=== PATIENT | female | born 1970 | race Caucasian/White ===

== ENCOUNTER 2020-12-26 14:02 | Emergency (ER) | payer BC, SELFPAY ==
[2020-12-26 14:15] VITALS: BP 128/82; PULSE 89; RESP 21; TEMP 37; O2SAT 100; BMI 36.3
--- NOTE | 2020-12-26 15:00 | HMH.EDUTC ---
[facility] Disposition Clinical Impression: Nausea Diarrhea Qualifiers: Diarrhea type: unspecified type Qualified Code(s): R19.7 - Diarrhea, unspecified Disposition: Home, Self-Care Condition on Discharge: Good Instructions: Diarrhea, DI for Nausea -- Adult, Ondansetron, Dicyclomine Additional Instructions: Drink extra fluids with and between meals. If you have difficulty drinking, try very small amounts of water or suck on ice chips. ? Avoid fruit juices, as these do not replace minerals and can actually increase diarrhea. ? Children and adults can use sports drinks to replenish electrolytes. Younger children and infants should use products formulated for children, like oral rehydration solutions. ? Eat food in small amounts and let your stomach recover. ? Get lots of rest. You may feel tired or weak. ? No greasy or fried foods for the next 24-48 hours BRAT diet Bananas Rice Apples and [place] ? Make sure to drink plenty of liquids ? Return if needed ? Straight to ER if any life threatening symptoms ? Zofran as prescribed ? You was given an outpatient order for diarrhea panel, please collect specimen and bring back to outpatient lab then call back to the [facility] or follow up with family doctor for results ? Follow up with family doctor in the next 48-72 hours if no improvement or any worsening of symptoms Prescriptions: Dicyclomine HCl [Bentyl 10mg capsule] 10 mg PO TID PRN #15 cap PRN Reason: Cramping Transmission Status: Pending to [id number] Ondansetron [Zofran 4mg ODT] 4 mg PO TIDP PRN #9 tab PRN Reason: Nausea Transmission Status: Pending to [id number] Referrals: Anthony Mccann MD [Primary Care Provider] - As needed Time of Disposition: 15:17 Medical Decision Making - Malvin Inquiry Pt receiving controlled substance: No Malvin was queried for this patient: No Vital Signs: 12/26/20 14:15 Temperature 98.6 F Temperature Source Oral Pulse Rate [Right Brachial] 89 Respiratory Rate 21 Blood Pressure [Right Arm] 128/82 Blood Pressure Mean [Right Arm] 97 Blood Pressure Source [Right Arm] Automatic Cuff Blood Pressure Position [Right Arm] Sitting 02 Sat by Pulse Oximetry 100 Oxygen Delivery Method Room Air - Lab Data Lab results reviewed: Yes: I reviewed the patient's lab results. Lab Results 12/26/20 15:00: Urine Color Dark yellow, Urine Appearance Clear, Urine pH 6.0, Ur Specific Welch 1.030, Urine Protein 1+, Urine Glucose (UA) Negative, Urine Ketones Negative, Urine Blood Trace, Urine Nitrate Negative, Urine Bilirubin 1+ A, Urine Urobilinogen 0.2, Ur Leukocyte Esterase Negative [facility] HPI - General Stated complaint: diarrhea,nausea, chills Time Seen by Provider: 12/26/20 15:00 Mode of Arrival: Ambulatory Source of Information: Patient Limitations: No Limitations Description of Symptoms (Recalled from Triage Doc. by RN): PATIENT C/O DIARRHEA AND NAUSEA SINCE WEDNESDAY EVENING HEENT Symptoms (Recalled from RN notes): No Resp Symptoms (Recalled from RN notes): No Skin Symptoms (Recalled from RN notes): No MS Symptoms (Recalled from RN notes): No Functional Status (Recalled from RN notes): WNL - History of Present Illness Provider Complaint: Patient states that she started having diarrhea and Nausea on Wednesday but no vomiting States that she has had some cramping and diarrhea has been on and off States that also wants to get checked for UTI states that she noticed earlier that she has a little burning with urination and afraid with the diarrhea she has got a UTI - Related Data Home Medications Medication Instructions Recorded Confirmed citalopram 20 mg tablet 20 mg PO DAILY 10/12/19 12/26/20 omeprazole 20 mg capsule,delayed 20 mg PO DAILY 10/12/19 12/26/20 release Previous Rx's Medication Instructions Recorded Dicyclomine HCl [Bentyl 10mg 10 mg PO TID PRN #15 cap 12/26/20 capsule] Ondansetron [Zofran 4mg ODT] 4 mg PO TIDP PRN #9 tab 12/26/20 A
[2020-12-26 15:09] LABS: Apearance,Urine Clear (Clear); Color,Urine Dark Yellow (Yellow); Glucose,Urine (UA) Negative (Negative); Protein,Urine 1+ (Negative)
[2020-12-26 15:10] LABS: Bilirubin,Urine 1+ (Negative); Blood, Urine Trace (Negative); Ketones,Urine Negative (Negative); UTC Leukocyte Esterase,Urine Negative (Negative); UTC Nitrate,Urine Negative (Negative); Urobilinogen,Urine 0.2 EU/dl (0.2)
[2020-12-26 15:14] VITALS: BP 128/82; PULSE 89; RESP 21; TEMP 37; O2SAT 100
== END 2020-12-26 15:20 | disposition home or self-care (01) ==
PROVIDERS: Emergency Provider Nurse Practitioner; PCP Family Medicine
DX: R11.0 Nausea (principal); R19.7 Diarrhea, unspecified; K21.9 Gastro-esophageal reflux disease without esophagitis; F41.9 Anxiety disorder, unspecified
CPT/HCPCS: 81003; 99202; G0463

== ENCOUNTER 2022-08-28 18:55 | Emergency (ER) | payer BC, SELFPAY ==
[2022-08-28] VITALS (8 sets, daily range): BP systolic 131–216; BP diastolic 78–143; PULSE 79–105; RESP 14–19; TEMP 36.8; O2SAT 95–98; BMI 37.2
--- NOTE | 2022-08-28 19:08 | ECG_ITS ---
APPROVED REPORT Exam: Resting ECG HR:97 bpm ECG Measurements Heart Rate 97 AXES [place] 167 P 67 QRSd 90 QRS 66 QT 342 T 64 QTc 397 Conclusion SINUS RHYTHM MINIMAL ST DEPRESSION [0.025+ mV ST DEPRESSION] BORDERLINE ECG UNCONFIRMED REPORT Electronically signed by : Roshan Urrutia MD 08/29/2022 16:21:32
--- NOTE | 2022-08-28 19:20 | HMH.EDGENADL ---
Discharge Plan Disposition Patient Disposition: Home, Self-Care Condition: Good Prescriptions Prescriptions: New cephalexin [cephalexin] 500 mg capsule 500 mg PO BID Qty: 14 0RF lisinopril 10 mg tablet 10 mg PO DAILY Qty: 10 0RF No Action citalopram [Celexa] 20 mg tablet 20 mg PO DAILY omeprazole 20 mg capsule,delayed release(DR/EC) 20 mg PO DAILY Clinical Impressions Clinical Impression: Hypertension, UTI (urinary tract infection), Hypertensive emergency Instructions Patient Instructions: Essential Hypertension Discharge ED Provider: Jony Tim General Adult HPI <Jony Tim MD - Last Filed: 08/28/22 19:43> General Chief complaint: Arrhythmia/Palpitations Stated complaint: Blood Pressure High HINOJOSA Time Seen by Provider: 08/28/22 19:20 Mode of Arrival: Ambulatory Source of Information: Patient Limitations: No Limitations Description of Symptoms (Recalled from ER Triage Doc. by RN): Patient reports feeling like her blood pressure was up since Wednesday. Patient denies history of HTN. Does not associate chest pain, shortness of air, fever, chills. History of Present Illness HPI narrative: Patient states my blood pressure has been creeping up . She says on Wednesday evening when she first noticed it her blood pressure was 140/110. It has been climbing since then. She does not have a diagnosis of hypertension. She does not have any known heart disease. She says she has had a slight headache. She says when she looks at spreadsheets at work she has some small spots of blurry vision intermittently, e.g. some of the numbers in a line of numbers will appear difficult to see. No other visual disturbance. She sometimes has a slight discomfort in her chest and dyspnea on exertion. Related Data Home Medications Medication Instructions Recorded Confirmed citalopram 20 mg tablet (Celexa) 20 mg PO DAILY Anxiety 10/12/19 08/28/22 omeprazole 20 mg capsule,delayed 20 mg PO DAILY GERD 10/12/19 08/28/22 release Previous Rx's Medication Instructions Recorded cephalexin 500 mg capsule 500 mg PO BID #14 caps 08/28/22 lisinopril 10 mg tablet 10 mg PO DAILY #10 tabs 08/28/22 Allergies Allergy/AdvReac Type Severity Reaction Status Date / Time any Allergy pancreatiti Verified 10/12/19 18:18 s <Chin Barrientos MD - Last Filed: 08/28/22 21:04> General Source of Information: Medical Record [facility] <Jony Tim MD - Last Filed: 08/28/22 19:43> [facility] Disclaimer: The information contained in this section may have been updated after the patient was seen, as this information can be updated by other users. Medical History (Updated 08/28/22 @ 21:04 by Chin Barrientos MD) Anxiety with depression delivery delivered GERD without esophagitis Hernia of abdominal cavity Seasonal allergies Social History Smoking Status: Never smoker alcohol intake: never substance use type: denies use current occupational status: other Travel in the last 8 weeks: None household members: family housing: house <Jony Tim MD - Last Filed: 08/28/22 19:43> ROS Obtained: Yes Systems reviewed as appropriate & no additional complaints except as documented Constitutional Constitutional: Denies fever(s), Reports headache(s) and Denies weakness Eyes Eyes: Reports as per HPI and Reports blurry vision ENT Ears, Nose, Mouth, and Throat: Reports headache(s), Denies nasal discharge and Denies sore throat Cardiovascular Cardiovascular: Reports chest pain and Reports dyspnea on exertion Respiratory Respiratory: Denies shortness of breath, Denies cough and Reports dyspnea on exertion Gastrointestinal Gastrointestingal: Denies abdominal pain, constipation, diarrhea or vomiting Genitourinary Female Genitourinary: Denies difficulty voiding, Denies dysuria and Denies flank pain Musculoskeletal Musculoskeletal: Denies numbness Neurologic Neurologic: Reports headache(s),
--- NOTE | 2022-08-28 19:22 | PC.NURSE ---
Dr. Tim at [facility] speaking with pt
--- NOTE | 2022-08-28 19:32 | XR_ITS ---
PROCEDURE INFORMATION: Exam: XR Chest Exam date and time: 08/28/2022 7:51 PM Age: 52 years old Clinical indication: Pain; Chest pressure; Additional info: High BP TECHNIQUE: Imaging protocol: Radiologic exam of the chest. Views: 1 view. COMPARISON: No relevant prior studies available. FINDINGS: Lungs: No consolidation. Pleural spaces: No pneumothorax. Heart/Mediastinum: No cardiomegaly. Bones/joints: No acute abnormality. IMPRESSION: No acute findings.
[2022-08-28 19:38] LABS: Microscopic, Urine URINE MICROSCOPIC (MICROSCOPIC)
[2022-08-28 19:40] LABS: Appearance,Urine CLEAR (Clear); Bilirubin,Urine Negative (Negative); Blood, Urine Negative (Negative); Color,Urine YELLOW (Yellow); Glucose,Urine (UA) Negative (Negative); Ketones,Urine TRACE (Negative); Leukocyte Esterase,Urine Negative (Negative); Nitrate,Urine POSITIVE (Negative); PH,Urine 5.5 (5.0-8.5); Protein,Urine Negative (Negative)
--- NOTE | 2022-08-28 19:40 | PC.NURSE ---
RAD at for CXR
[2022-08-28 19:49] LABS: Alanine Aminotransferase 66 U/L (12-78); Albumin Level 4.7 g/dl (3.5-5.0); Albumin/Globulin Ratio 1.3 (1.1-1.8); Alkaline Phosphatase 88 U/L (38-126); Anion Gap 12.5 mEq/L (5-15); Aspartate Amino Transferase 57 U/L (14-36); Bilirubin,Total 0.5 mg/dl (0.2-1.3); Blood Urea Nitrogen 16 mg/dl (7-17); Carbon Dioxide 25 mmol/L (22.0-30.0); Chloride 104 mmol/L (98-107); Creatinine Clearance Estimated 143 mL/min (50-200); Estimated Glomerular Filt Rate 88 ml/min (>60); GFR (African American) 107 ML/MIN (>60); Globulin 3.7 g/dL (1.3-3.2); Glucose 80 mg/dl (74-100); Potassium 3.5 mmoL/L (3.5-5.1); Sodium 138 mmol/L (136-145); Total Protein,Serum 8.4 g/dl (6.3-8.2)
[2022-08-28 19:58] LABS: NT Pro Brain Natriuretic Pep. 71.8 pg/mL (0-125)
[2022-08-28 20:08] LABS: Basophils # 0.1 K/mm3 (0-0.2); Basophils % 1.2 % (0.1-2.0); Eosinophils # 0.1 K/mm3 (0.0-0.4); Eosinophils % 1.5 % (0.1-12.0); Hematocrit 41.3 % (37.0-47.0); Hemoglobin 13.7 g/dL (12.2-16.2); Lymphocytes # 2.7 K/mm3 (0.7-4.5); Lymphocytes % 31.8 % (10-50); Mean Corpuscular HGB Conc 33.2 g/dL (31.8-35.4); Mean Corpuscular Hemoglobin 29.3 pg (27.0-31.2); Mean Corpuscular Volume 88.2 fl (81-99); Mean Platelet Volume 9.4 fl (7.4-10.4); Monocytes # 0.4 K/mm3 (0.1-1.0); Monocytes % 4.7 % (1.7-9.3); Neutrophils # 5.2 K/mm3 (1.8-7.8); Neutrophils % 60.9 % (37.0-80.0); Platelet Count 271 K/mm3 (142-424); Red Blood Count 4.69 M/mm3 (4.20-5.40); Red Cell Distribution Width 15.2 % (11.5-17.5); White Blood Count 8.6 K/mm3 (4.8-10.8)
[2022-08-28 20:11] LABS: Troponin I < 0.01 ng/ml (0.00-0.034)
[2022-08-28 20:15] LABS: Bacteria,Urine 3+ /lpf
--- NOTE | 2022-08-28 20:58 | PC.NURSE ---
Rechecked pt condition. No needs or complaints voiced at this time.
== END 2022-08-28 21:07 | disposition home or self-care (01) ==
PROVIDERS: Emergency Provider Emergency Medicine; PCP Family Medicine
DX: I16.1 Hypertensive emergency (principal); I10 Essential (primary) hypertension; N39.0 Urinary tract infection, site not specified; F41.9 Anxiety disorder, unspecified; K21.9 Gastro-esophageal reflux disease without esophagitis; J30.9 Allergic rhinitis, unspecified
CPT/HCPCS: 71045; 80053; 81001; 83880; 84484; 85025; 87086; 87088; 87186; 93005; 96374; 99285

== ENCOUNTER 2024-05-08 16:33 | Emergency (ER) | payer BC, SELFPAY ==
[2024-05-08] VITALS (7 sets, daily range): BP systolic 129–210; BP diastolic 91–119; PULSE 76–92; RESP 16–20; TEMP 36.5–36.8; O2SAT 94–100; BMI 29.5
[2024-05-08 17:09] LABS: Basophils # 0.1 K/mm3 (0-0.2); Basophils % 0.5 % (0.1-2.0); Eosinophils % 0.3 % (0.1-12.0); Hematocrit 43.6 % (37.0-47.0); Hemoglobin 13.7 g/dL (12.2-16.2); Lymphocytes # 1.8 K/mm3 (0.7-4.5); Lymphocytes % 17.3 % (10-50); Mean Corpuscular HGB Conc 31.4 g/dL (31.8-35.4); Mean Corpuscular Hemoglobin 30.4 pg (27.0-31.2); Mean Platelet Volume 10.3 fl (7.4-10.4); Monocytes # 0.4 K/mm3 (0.1-1.0); Monocytes % 3.5 % (1.7-9.3); Neutrophils # 8.2 K/mm3 (1.8-7.8); Neutrophils % 78.4 % (37.0-80.0); Platelet Count 268 K/mm3 (142-424); Red Blood Count 4.49 M/mm3 (4.20-5.40); Red Cell Distribution Width 13.9 % (11.5-17.5); White Blood Count 10.4 K/mm3 (4.8-10.8)
--- NOTE | 2024-05-08 17:11 | HMH.EDGENADL ---
Discharge Plan Disposition Patient Disposition: Home, Self-Care Prescriptions Prescriptions: New ondansetron 4 mg tablet,disintegrating 4 mg PO Q6H PRN (Reason: nausea and vomiting) Qty: 10 0RF oxycodone 5 mg tablet 5 mg PO Q6H PRN (Reason: pain) Qty: 10 0RF No Action citalopram [Celexa] 20 mg tablet 20 mg PO DAILY omeprazole 20 mg capsule,delayed release(DR/EC) 20 mg PO DAILY cephalexin [cephalexin] 500 mg capsule 500 mg PO BID Qty: 14 0RF lisinopril 10 mg tablet 10 mg PO DAILY Qty: 10 0RF Referrals Follow up/Referrals: Moris Jason II, MD [Primary Care Provider] - See instructions Activity Restrictions/Add. Instructions Additional Instructions/Restrictions: Call your family doctor to establish care for this visit to the emergency department and schedule follow-up within 48 hours to ensure improvement. If you have any worsening of your condition or any other concerning signs or symptoms, return to the emergency department or your primary care doctor for further evaluation. Clinical Impressions Clinical Impression: Acute on chronic pancreatitis Instructions Patient Instructions: DI for Acute Abdominal Pain Print Language Print Language: [place] Discharge ED Provider: Nahum Ramsey General Adult HPI General Chief complaint: Abdominal Pain Stated complaint: Stomach pain with vomiting Time Seen by Provider: 05/08/24 16:40 Mode of Arrival: Ambulatory Source of Information: Patient Limitations: No Limitations Description of Symptoms (Recalled from ER Triage Doc. by RN): Patient reports right sided abdomen pain and vomiting that started last night and has just continued to get worse today. History of Present Illness HPI narrative: Please note that above description of symptoms, in this electronic medical record under categorization of recalled from ER triage doctor by RN are reflective of an initial nursing assessment, however, is not reflective of my full history and physical exam that was personally taken and clarified. Consequentially, this preceding description of symptoms, which may include the patient's categorized chief complaint in the EMR, do not reflect my personal clinical impression, and the ultimate description of history of present illness and patient stated complaints should be deferred to this section of the note. Unless stated otherwise or congruent with this section of the note, additional signs, symptoms, or incongruence should be interpreted as inaccurate with my clinical impression. Related Data Home Medications ?Medication ?Instructions ?Recorded ?Confirmed citalopram 20 mg tablet (Celexa) 20 mg PO DAILY Anxiety 10/12/19 08/28/22 omeprazole 20 mg capsule,delayed 20 mg PO DAILY GERD 10/12/19 08/28/22 release Previous Rx's ?Medication ?Instructions ?Recorded cephalexin 500 mg capsule 500 mg PO BID #14 caps 08/28/22 lisinopril 10 mg tablet 10 mg PO DAILY #10 tabs 08/28/22 ondansetron 4 mg disintegrating 4 mg PO Q6H PRN nausea and 05/08/24 tablet vomiting #10 tabs oxycodone 5 mg tablet 5 mg PO Q6H PRN pain #10 tabs 05/08/24 Allergies Allergy/AdvReac Type Severity Reaction Status Date / Time any Allergy pancreatiti Verified 10/12/19 18:18 s [facility] Disclaimer: The information contained in this section may have been updated after the patient was seen, as this information can be updated by other users. Medical History (Updated 05/08/24 @ 21:09 by Nahum Ramsey MD) Hernia of abdominal cavity delivery delivered Anxiety with depression Seasonal allergies GERD without esophagitis Social History Smoking Status: Never smoker alcohol intake: never substance use type: denies use current occupational status: other Travel in the last 8 weeks: None household members: family housing: house ROS Obtained: Yes All systems reviewed & no additional complaints except as documented Physical Exam General General appearance: alert Head Head exam: atraumatic and normocephalic Eye Eye exam: Present normal appearance, PERRL and EOMI Neck Neck exam: Present normal inspection, full ROM and trachea midline Respiratory Respiratory exam: Absent respiratory distress, wheezes, stridor, accessory muscle use or prolonged expiratory phase Cardiovascular Cardiovascular exam: Present other (Pulses equal symmetric in upper and lower extremities) Abdominal Exam Abdominal exam: Present soft; Absent distention, tenderness or pulsatile mass Extremities Exam Extremities exam: Absent edema Neurological Exam Neurological exam: Present alert, oriented X3 and CN II-XII intact; Absent motor sensory deficit Skin Skin exam: Present warm and dry; Absent diaphoresis or erythema Medical Decision Making Medical Records Medical records reviewed: Yes I reviewed the patient's medical records. Screening: Per USPSTF and CDC recommendations, given the prevalence of disease in our region, it is our hospital?s policy to screen for HIV and viral Hepatitis for all patients aged 18 and over and those with ongoing risk factors. Malvin Inquiry Pt receiving controlled substance: No Malvin was queried for this patient: No Vital Signs: 05/08/24 16:35 05/08/24 17:00 05/08/24 17:30 Temperature 98.2 F Temperature Source Oral Pulse Rate 88 90 Pulse Rate [Radial] 87 Respiratory Rate 16 20 18 Blood Pressure 143/112 H 130/101 H Blood Pressure [Right Arm] 210/119 H Blood Pressure Mean [Right Arm] 149 Blood Pressure Source [Right Arm] Automatic Cuff Blood Pressure Position [Right Arm] Sitting 02 Sat by Pulse Oximetry 96 100 95 Oxygen Delivery Method Room Air Room Air Room Air 05/08/24 18:00 05/08/24 18:30 05/08/24 19:00 Temperature Temperature Source Pulse Rate 77 77 76 Pulse Rate [Radial] Respiratory Rate 18 20 18 Blood Pressure 147/93 H 143/98 H 160/107 H Blood Pressure [Right Arm] Blood Pressure Mean [Right Arm] Blood Pressure Source [Right Arm] Blood Pressure Position [Right Arm] 02 Sat by Pulse Oximetry 96 94 L 96 Oxygen Delivery Method Room Air Room Air Room Air Lab Data Lab Results 05/08/24 16:45: WBC 10.4, RBC 4.49, Hgb 13.7, Hct 43.6, MCV 97.0, MCH 30.4, MCHC 31.4 L, RDW 13.9, Plt Count 268, MPV 10.3, Neut % (Auto) 78.4, Lymph % (Auto) 17.3, Cedar % (Auto) 3.5, Eos % (Auto) 0.3, Baso % (Auto) 0.5, Neut # (Auto) 8.2 H, Lymph # (Auto) 1.8, Cedar # (Auto) 0.4, Eos # (Auto) 0.0, Baso # (Auto) 0.1, Sodium 139, Potassium 3.8, Chloride 99, Carbon Dioxide 29, Anion Gap 14.8, BUN 16, Creatinine 0.60, Estimated Creat Clear 130, Estimated GFR 105, Est GFR ( Amer) 127, Glucose 112 H, Lactate 1.5, Calcium 9.7, Total Bilirubin 0.7, AST 33, ALT 34, Alkaline Phosphatase 143 H, Troponin I < 0.01, Total Protein 8.5 H, Albumin 4.6, Globulin 3.9 H, Albumin/Globulin Ratio 1.2, Lipase 27, HIV 1&2 Antibody Rapid Nonreactive 05/08/24 16:45 05/08/24 16:45 Orders (Tests/Meds): ED MEDICATIONS Generic Name Dose Route Start Last Admin Trade Name Ebonie PRN Reason Stop Dose Admin Sodium Chloride 10 ml 05/08/24 19:12 05/08/24 19:13 Sodium Chloride 0.9% 10ml Syr (Rad Only) IV 06/07/24 19:11 10 ml NEEDED PRN Administration Maintain IV Site Discontinued Medications Generic Name Dose Route Start Last Admin Trade Name Ebonie PRN Reason Stop Dose Admin Hydromorphone HCl 0.5 mg 05/08/24 18:54 05/08/24 20:05 Hydromorphone 2mg/Ml Syringe IV 05/08/24 18:55 0.5 mg ONCE ONE Administration Lactated Ringer's 1,000 mls @ 999 mls/hr 05/08/24 16:58 05/08/24 17:21 Lactated Ringer's 1000 Ml Bag IV 05/08/24 17:58 999 mls/hr .Q1H1M ONE Administration Iopamidol 75 ml 05/08/24 19:12 05/08/24 19:13 Iopamidol-370 (76%);100ml Bottle IV 05/08/24 19:13 75 ml ONCE ONE Administration Ketorolac Tromethamine 15 mg 05/08/24 16:58 05/08/24 17:20 Ketorolac 30mg/Ml Vial IV 05/08/24 16:59 15 mg ONCE ONE Administration Morphine Sulfate 4 mg 05/08/24 16:58 05/08/24 17:20 Morphine 4mg/Ml Syringe IV 05/08/24 16:59 4 mg ONCE ONE Administration Ondansetron HCl 4 mg 05/08/24 16:58 05/08/24 17:20 Ondansetron 4mg/2ml Vial IV 05/08/24 16:59 4 mg ONCE ONE Administration Oxycodone HCl 5 mg 05/08/24 20:13 05/08/24 20:47 Oxycodone 5mg Immediate Release Tablet PO 05/08/24 20:14 5 mg ONCE ONE Administration ORDERS Category Date Time Status CT abdomen pelvis w con Stat Cat Scan 05/08/24 18:53 Completed CBC w/Auto Diff [Complete Blood Count Auto Diff] Stat Lab 05/08/24 16:45 Completed CMP [Comprehensive Metabolic Panel] Stat Lab 05/08/24 16:45 Completed HIV (1&2) Antibody Rapid Stat Lab 05/08/24 16:45 Completed Hep C Ab with Reflex to RNA Stat Lab 05/08/24 16:45 Received Lactic Acid Stat Lab 05/08/24 16:45 Completed Lipase Stat Lab 05/08/24 16:45 Completed Trop I [Troponin I] Stat Lab 05/08/24 16:45 Completed UA [Urinalysis and Microscopic] Stat Lab 05/08/24 16:58 Ordered Medical Decision Narrative: 54-year-old female history of hypertension, cholecystectomy, gastric sleeve, partial pancreatectomy, chronic pancreatitis, presenting with abdominal pain. Patient states that abdominal pain started earlier this morning. Not related to food intake. Started with epigastric abdominal pain, radiates through to her back, associated with nausea and vomiting that is nonbloody, nonbilious. It is moderate, but flares up intermittently and is severe. Burning, pulsating. States that it feels similar to her pancreatitis in the past, but not exactly the same. She states that yesterday, 05/07, she was at a baby shower and ate a much more than she usually does, unsure if this is related. No diarrhea, no blood in her stool. Last bowel movement was today, normal for her. Still passing gas. History was obtained via conversation with patient. On arrival, patient hemodynamically stable, alert, oriented x4, appropriate, GCS 15, moving all extremities spontaneously, pupils equal and reactive to light. Full physical exam performed and significant for uncomfortable appearing female who is rocking back and forth holding her abdomen. Mild distress. She is hypertensive, nontachycardic. Abdomen is soft, nondistended, but tender in epigastrium without rebound, rigidity, or guarding. No abdominal or flank bruising. No flank tenderness in general. Differential includes PUD, gastritis, enteritis, gastroenteritis, pancreatitis, SBO, colitis, diverticulitis, nephrolithiasis, UTI, cholecystitis, choledocholithiasis, appendicitis, torsion, hepatitis, aortic pathology, mesenteric ischemia among others. Patient placed on continuous cardiac monitoring and continuous pulse ox with initial blood pressure 210/119, heart rate 87, saturation 96% on room air. Independent interpretation of EKG shows sinus rhythm 77 beats a minute no ST or T wave changes concerning for acute ischemia. CT 151, QRS 82, QTc 412. Patient was given Zofran, morphine, Toradol, fluids for symptomatic management and correction of underlying abnormalities. Workup independently interpreted and significant for nonactionable CBC or chemistry, troponin negative, lipase negative. Lactic negative. CT of the abdomen and pelvis was ordered. On independent interpretation of imaging, patient has peripancreatic stranding concern for pancreatitis. See radiology read for full review of final results. On reevaluation, patient still having intermittent pains, controlled with opiate medication. Conversation had with patient regarding home-going versus staying, she wants to go home with oral pain medication and bowel rest because she has had this in the past. I feel this is appropriate. Patient was given oral oxycodone and p.o. challenge successfully.. Given patient presentation, workup, history, this most likely represents acute on chronic pancreatitis. Because patient at baseline without signs or symptoms of clinical decompensation, deemed appropriate for discharge. Results were relayed to patient who voiced understanding and were agreeable to outpatient management and follow up. I discussed my clinical impression with patient and answered all questions. At this time, the evidence for any other entities in the differential is insufficient to warrant any further testing or ED observation. This was explained as well. Advisory was given that persistent or worsening symptoms require further evaluation. I confirmed the understanding of this discussion. [employer] Worker disclaimer Much of this encounter note is an electronic mine supervisor spoken language to printed text. Electronic mine supervisor of the spoken language may permit errors. Although I have reviewed the note, some errors may still exist. Critical Care Critical Care Time Critical Care Time: No
[2024-05-08 17:13] LABS: Albumin Level 4.6 g/dl (3.5-5.0); Chloride 99 mmol/L (98-107); Potassium 3.8 mmoL/L (3.5-5.1); Sodium 139 mmol/L (136-145)
[2024-05-08 17:16] LABS: Alanine Aminotransferase 34 U/L (12-78); Albumin/Globulin Ratio 1.2 (1.1-1.8); Alkaline Phosphatase 143 U/L (38-126); Anion Gap 14.8 mEq/L (5-15); Aspartate Amino Transferase 33 U/L (14-36); Bilirubin,Total 0.7 mg/dl (0.2-1.3); Blood Urea Nitrogen 16 mg/dl (7-17); Calcium 9.7 mg/dl (8.4-10.2); Carbon Dioxide 29 mmol/L (22.0-30.0); Creatinine Clearance Estimated 130 mL/min (50-200); Estimated Glomerular Filt Rate 105 ml/min (>60); GFR (African American) 127 ML/MIN (>60); Globulin 3.9 g/dL (1.3-3.2); Glucose 112 mg/dl (74-100); Lipase 27 U/L (23-300); Total Protein,Serum 8.5 g/dl (6.3-8.2)
[2024-05-08] MEDS: ONDANSETRON 4MG/2ML VIAL 4 MG IV (17:20)
[2024-05-08] MEDS: KETOROLAC 30MG/ML VIAL 15 MG IV (17:20)
[2024-05-08] MEDS: MORPHINE 4MG/ML SYRINGE 4 MG IV (17:20)
[2024-05-08] MEDS: LACTATED RINGERS 1000ML 1,000 ML 999 ML IV (17:21)
--- NOTE | 2024-05-08 17:33 | ECG_ITS ---
APPROVED REPORT Exam: Resting ECG HR:77 bpm ECG Measurements Heart Rate 77 AXES [place] 151 P 53 QRSd 82 QRS 57 QT 380 T 57 QTc 412 Conclusion SINUS RHYTHM NORMAL ECG Electronically signed by : PANDA RAWLS, 05/09/2024 07:29:19
[2024-05-08 17:45] LABS: Troponin I < 0.01 ng/ml (0.00-0.034)
--- NOTE | 2024-05-08 18:15 | PC.NURSE ---
DR PAYNE AT BEDSIDE TO UPDATE PT
[2024-05-08 18:42] LABS: Lactic Acid 1.5 mmol/L (0.7-2.1)
--- NOTE | 2024-05-08 18:53 | CT_ITS ---
PROCEDURE INFORMATION: Exam: CT Abdomen And Pelvis With Contrast Exam date and time: 05/08/2024 7:14 PM Age: 54 years old Clinical indication: Abdominal pain; Epigastric; Prior surgery; Surgery date: 6+ months; Surgery type: History partial pancreatectomy, gastric sleeve, ccy; Additional info: Severe epigastric pain, negative labs. TECHNIQUE: Imaging protocol: Computed tomography of the abdomen and pelvis with contrast. Radiation optimization: All CT scans at this facility use at least one of these dose optimization techniques: automated exposure control; mA and/or kV adjustment per patient size (includes targeted exams where dose is matched to clinical indication); or iterative reconstruction. Contrast material: ISOVUE; Contrast volume: 75 ml; Contrast route: IV; COMPARISON: CR XR CHEST PORTABLE 28/08/2022 19:51 FINDINGS: Lungs: Mild bibasilar atelectasis. Coronary arteries: Moderate coronary arterial calcification, indicating the presence of coronary artery disease. Liver: Possible hepatic steatosis. Gallbladder and biliary ducts: Gallbladder is absent. Mild post cholecystectomy ectasia. Pancreas: Peripancreatic edema most likely represents acute pancreatitis. There is a small gas-filled pancreatic tail lesion measuring 10 mm on image 27 series 3. Pancreatic calcifications likely representing chronic pancreatitis. Spleen: Normal. No splenomegaly. Adrenal glands: Normal. No mass. Kidneys and ureters: Nonobstructing right renal calculus. Stomach and bowel: Status post gastric sleeve. Appendix: Unremarkable appendix. Intraperitoneal space: Small amount of free fluid in the pelvis. Vasculature: The arteries demonstrate mild atherosclerotic disease. Lymph nodes: Unremarkable. No enlarged lymph nodes. Urinary bladder: Unremarkable as visualized. Reproductive: Unremarkable as visualized. Bones/joints: Unremarkable. No acute fracture. Soft tissues: There is a healed anterior abdominal wall incision. IMPRESSION: 1. Peripancreatic edema most likely represents acute pancreatitis. No peripancreatic fluid collection. Patent splenic and portal veins. 2. Nonobstructing right renal calculus. 3. Moderate coronary arterial calcification, indicating the presence of coronary artery disease. If the patient has associated symptoms, recommend management as per chest pain guidelines. If the patient is asymptomatic, consider reviewing modifiable cardiovascular risk factors and managing as per guidelines for primary prevention.
[2024-05-08] MEDS: SODIUM CHLORIDE 0.9% 10ML SYR (RAD ONLY) 10 ML IV (19:13)
[2024-05-08] MEDS: IOPAMIDOL-370 (76%);100ML BOTTLE 75 ML IV (19:13)
[2024-05-08 19:32] LABS: HIV (1&2) Antibody Rapid NONREACTIVE (NONREACTIVE)
[2024-05-08] MEDS: HYDROMORPHONE 2MG/ML SYRINGE 0.5 MG IV (20:05)
[2024-05-08] MEDS: OXYCODONE 5MG IMMEDIATE RELEASE TABLET 5 MG PO (20:47)
[2024-05-10 05:11] LABS: HCV Ab Non Reactive (Non Reactive)
== END 2024-05-08 21:36 | disposition home or self-care (01) ==
PROVIDERS: Emergency Provider Emergency Medicine; PCP Pediatrics
DX: R10.13 Epigastric pain (principal); K85.90 Acute pancreatitis without necrosis or infection, unspecified; R11.2 Nausea with vomiting, unspecified
CPT/HCPCS: 74177; 80053; 83605; 83690; 84484; 85025; 86803; 87389; 93005; 96361; 96374; 96375; 99285; J1170; J1885; J2270; J2405; J7120; Q9967